=== PATIENT | male | born 1960 | race Caucasian/White ===

== ENCOUNTER 2017-05-07 20:47 | Emergency (ER) | payer MEDICAID ==
[~2017-05-07] VITALS: Ht 177.8 cm; Wt 109.4 kg
[~2017-05-07 20:47] MED LIST: CYCL-1 PO; GABA600T2 PO; IBUP-1984 PO; MEDICAL THC INH; MULT-1085 PO; NAPR-996 PO
[2017-05-07] MEDS ORDERED: fentaNYL/PF 50MCG/1 ML 2ML syringe IV ONE ×2 (21:25→22:00)
[2017-05-07] MEDS ORDERED: propofol 1000mg/100ml bottle 100 ML IV PRN (21:59)
[2017-05-07] MEDS ORDERED: propofol 10mg/ml 20ml vial IV ONE ×2 (22:00→22:10)
[2017-05-07] MEDS ORDERED: HYDR-3965 PO (22:30)
[2017-05-07] MEDS ORDERED: HYDROcodone/acetaminophen 5mg/325mg tablet PO ONE (22:30)
[2017-05-07 23:10] VITALS: BP 141/83
== END 2017-05-07 23:34 | disposition home or self-care (01) ==
LOC: ER 20:48
DX: S43.004A Unspecified dislocation of right shoulder joint, initial encounter (principal); Z79.899 Other long term (current) drug therapy; W01.0XXA Fall on same level from slipping, tripping and stumbling without subsequent striking against object, initial encounter; Y93.89 Activity, other specified; Y92.89 Other specified places as the place of occurrence of the external cause; Y99.8 Other external cause status
CPT/HCPCS: 23650; 73020; 73030; 96374; 96376; 99285; J2704; J3010; J7030; 96375; A4620

== ENCOUNTER → 2017-11-10 | Day surgery (SDC) | payer MEDICAID ==
[2017-11-02 15:16] LABS: BASOPHILS % (AUTO) 0.3 % (0-1); EOSINOPHILS # (AUTO) 0.3 X10'3 (0-0.9); EOSINOPHILS % (AUTO) 2.2 % (0-6); LYMPHOCYTES # (AUTO) 2.8 X10'3 (1.1-4.8); MEAN CORPUSCULAR HEMOGLOBIN 28.2 PG (27.0-31.0); MEAN CORPUSCULAR HGB CONC 33.1 % (33.0-36.5); MEAN CORPUSCULAR VOLUME 85.1 FL (78-98); MEAN PLATELET VOLUME 10.3 FL (7.4-10.4); MONOCYTES # (AUTO) 0.7 X10'3 (0-0.9); MONOCYTES % (AUTO) 5.3 % (2-12); NEUTROPHILS # (AUTO) 9.6 X10'3 (1.8-7.7); NEUTROPHILS % (AUTO) 71.2 % (42-75); PRE OP HEMATOCRIT 44.5 % (42.0-52.0); PRE OP HEMOGLOBIN 14.8 g/dL (14.0-17.9); PRE OP PLATELET COUNT 181 X10'3 (140-440); RED BLOOD COUNT 5.23 X10'6 (4.70-6.10); RED CELL DISTRIBUTION WIDTH 13.4 % (11.5-14.5)
[2017-11-02 15:33] LABS: ALBUMIN 4.1 G/DL (3.4-5.0); ALBUMIN/GLOBULIN RATIO 1.2 (1.1-1.5); ALKALINE PHOSPHATASE 118 IU/L (46-116); BLOOD UREA NITROGEN 18 MG/DL (7-18); BUN/CREATININE RATIO 18.9 (5.4-32.0); CALCIUM 9.1 MG/DL (8.5-10.1); CHLORIDE 103 MMOL/L (99-107); CREATININE 0.95 MG/DL (0.60-1.10); PRE OP ALT 43 U/L (30-65); PRE OP ANION GAP 9 (8-16); PRE OP AST 20 U/L (10-37); PRE OP BILIRUB, TOTAL 0.3 MG/DL (0.0-1.0); PRE OP GLUCOSE 128 MG/DL (70-104); PRE OP POTASSIUM 3.5 MMOL/L (3.4-5.1); PRE OP SODIUM 139 MMOL/L (135-145); TOTAL CARBON DIOXIDE 26.6 MMOL/L (24-32); TOTAL PROTEIN 7.5 G/DL (6.4-8.2); eGFR 81 ML/MIN
[~2017-11-10] VITALS: Ht 175.3 cm; Wt 104.4 kg
[2017-11-10] VITALS (8 sets, daily range): BP systolic 112–144; BP diastolic 64–92
[~2017-11-10] MED LIST changes: +ASPI-529 PO; +Cefazolin 2GM/50ML dext iso,osmotic IVPB IV ONE; -GABA600T2 PO; +HYDR-569 PO; +HYDROcodone/acetaminophen 10/325mg tab PO PRN; +LIDOcaine 1% (10mg/ml) 2ml vial ONE; +LIDOcaine 2% (20mg/ml) 5ml vial ONE; +LORA10TA7 PO; -NAPR-996 PO; +ROPIVAcaine 0.5% (5mg/ml) 30ml vial ONE; +cloNIDine hcl/PF 100mcg/ml inj ONE; +dexamethasone sod phosphate 4mg/ml inj. ONE; +enalaprilat dihydrate 2.5mg/2ml vial IV PRN; +famotidine 20mg tablet PO ONE; +fentaNYL/PF 50MCG/1 ML 2ML syringe ONE; +hydrALAZINE 20mg/ml inj. IV PRN; +meperidine/PF 25mg/ml syringe IV PRN; +midazolam 2 mg/2 ml injection ONE; +morphine 10mg/ml inj. ONE; +morphine 4 MG/ML inj SYRINge IV PRN; +ondansetron/PF 4mg/2ml inj IV PRN; +ondansetron/PF 4mg/2ml inj ONE; +propofol inj 20 ML IV ONE; +ringers solution, lacted 1,000 ML IV SCH; +sevoflurane 250ml liquid IH ONE
== END | disposition home or self-care (01) ==
LOC: PAS 05:25 → UNDOADMOB 10:05 → ORTHO 4S 10:05
PROVIDERS: ATTEND Orthopaedic Surgery
DX: M75.121 Complete rotator cuff tear or rupture of right shoulder, not specified as traumatic (principal); M94.211 Chondromalacia, right shoulder; M75.51 Bursitis of right shoulder; G89.18 Other acute postprocedural pain; M19.011 Primary osteoarthritis, right shoulder; I25.10 Atherosclerotic heart disease of native coronary artery without angina pectoris; F12.90 Cannabis use, unspecified, uncomplicated; Z72.89 Other problems related to lifestyle; Z86.14 Personal history of Methicillin resistant Staphylococcus aureus infection; Z87.39 Personal history of other diseases of the musculoskeletal system and connective tissue; Z79.82 Long term (current) use of aspirin; Z79.891 Long term (current) use of opiate analgesic; Z79.1 Long term (current) use of non-steroidal anti-inflammatories (NSAID); Z79.899 Other long term (current) drug therapy; Z98.890 Other specified postprocedural states; Z80.9 Family history of malignant neoplasm, unspecified
CPT/HCPCS: 29822; 29827; 36415; 64450; 80053; 85025; A6449; C1713; C1776; J0690; J0735; J1100; J2001; J2250; J2270; J2405; J2704; J2795; J3010; J3490; J7030; J7120; A7000

== ENCOUNTER 2019-04-09 06:28 | Emergency (ER) | payer MEDICARE, MEDICAID ==
[~2019-04-09] VITALS: Ht 177.8 cm; Wt 111.0 kg
[~2019-04-09 06:28] MED LIST changes: -Cefazolin 2GM/50ML dext iso,osmotic IVPB IV ONE; +HYDR-4383 PO; -HYDR-569 PO; -HYDROcodone/acetaminophen 10/325mg tab PO PRN; -LIDOcaine 1% (10mg/ml) 2ml vial ONE; -LIDOcaine 2% (20mg/ml) 5ml vial ONE; -ROPIVAcaine 0.5% (5mg/ml) 30ml vial ONE; -cloNIDine hcl/PF 100mcg/ml inj ONE; -dexamethasone sod phosphate 4mg/ml inj. ONE; -enalaprilat dihydrate 2.5mg/2ml vial IV PRN; -famotidine 20mg tablet PO ONE; -fentaNYL/PF 50MCG/1 ML 2ML syringe ONE; -hydrALAZINE 20mg/ml inj. IV PRN; -meperidine/PF 25mg/ml syringe IV PRN; -midazolam 2 mg/2 ml injection ONE; -morphine 10mg/ml inj. ONE; -morphine 4 MG/ML inj SYRINge IV PRN; -ondansetron/PF 4mg/2ml inj IV PRN; -ondansetron/PF 4mg/2ml inj ONE; -propofol inj 20 ML IV ONE; -ringers solution, lacted 1,000 ML IV SCH; -sevoflurane 250ml liquid IH ONE
[2019-04-09 06:35] VITALS: BP 176/93
[2019-04-09] MEDS ORDERED: LIDOcaine 1% W/epiNEPHrine 1:200,000 10ml vial IJ ONE (07:10)
[2019-04-09] MEDS ORDERED: CLIN-90 PO (07:34)
== END 2019-04-09 07:57 | disposition home or self-care (01) ==
LOC: ER 06:29
DX: R22.1 Localized swelling, mass and lump, neck (principal); F12.90 Cannabis use, unspecified, uncomplicated; Z79.82 Long term (current) use of aspirin; Z79.899 Other long term (current) drug therapy; Z79.2 Long term (current) use of antibiotics; Z79.1 Long term (current) use of non-steroidal anti-inflammatories (NSAID)
CPT/HCPCS: 10060; 99283

== ENCOUNTER 2019-10-24 07:03 | Inpatient (IN) | payer MEDICARE, MEDICAID ==
[2019-10-19 14:35] LABS: BASOPHILS # (AUTO) 0.1 X10'3 (0-0.2); BASOPHILS % (AUTO) 0.6 % (0-1); EOSINOPHILS # (AUTO) 0.1 X10'3 (0-0.9); EOSINOPHILS % (AUTO) 0.9 % (0-6); LYMPHOCYTES # (AUTO) 2.5 X10'3 (1.1-4.8); LYMPHOCYTES % (AUTO) 19.3 % (21-51); MEAN CORPUSCULAR HEMOGLOBIN 28.1 PG (27.0-31.0); MEAN CORPUSCULAR HGB CONC 33.1 g/dL (33.0-36.5); MEAN CORPUSCULAR VOLUME 84.8 FL (78-98); MEAN PLATELET VOLUME 9.5 FL (7.4-10.4); NEUTROPHILS # (AUTO) 9.1 X10'3 (1.8-7.7); NEUTROPHILS % (AUTO) 71.2 % (42-75); PRE OP HEMATOCRIT 45.2 % (42.0-52.0); PRE OP PLATELET COUNT 180 X10'3 (140-440); RED BLOOD COUNT 5.33 X10'6 (4.70-6.10); RED CELL DISTRIBUTION WIDTH 15.3 % (11.5-14.5)
[2019-10-19 14:44] LABS: PRE OP PROTIME 10.1 SECONDS (9.0-12.0)
[2019-10-19 14:45] LABS: ALBUMIN 3.9 G/DL (3.4-5.0); ALBUMIN/GLOBULIN RATIO 1.1 (1.1-1.5); ALKALINE PHOSPHATASE 100 IU/L (46-116); BLOOD UREA NITROGEN 19 MG/DL (7-18); BUN/CREATININE RATIO 21.6 (5.4-32.0); CALCIUM 8.7 MG/DL (8.5-10.1); CHLORIDE 107 MMOL/L (99-107); CREATININE 0.88 MG/DL (0.60-1.10); PRE OP ANION GAP 8 (8-16); PRE OP AST 44 U/L (10-37); PRE OP BILIRUB, TOTAL 0.4 MG/DL (0.0-1.0); PRE OP GLUCOSE 88 MG/DL (70-104); PRE OP POTASSIUM 4.1 MMOL/L (3.4-5.1); PRE OP SODIUM 140 MMOL/L (135-145); TOTAL CARBON DIOXIDE 24.9 MMOL/L (24-32); TOTAL PROTEIN 7.4 G/DL (6.4-8.2); eGFR 88 ML/MIN
[2019-10-19 14:49] LABS: PRE OP ALT 84 U/L (30-65)
[~2019-10-24] VITALS: Ht 175.3 cm; Wt 109.0 kg
[2019-10-24] VITALS (19 sets, daily range): BP systolic 121–150; BP diastolic 25–102
[~2019-10-24 07:03] MED LIST changes: +BACL10TA2 PO; +CELE-85 PO; -CYCL-1 PO; -HYDR-4383 PO; -IBUP-1984 PO; -MEDICAL THC INH; +OMEP40CA13 PO; +ceFAZolin 2gm in dextrose, iso 50 ML IV ONE; +famotidine 20mg tablet PO ONE; +ringers solution, lacted 1,000 ML IV SCH; +tranexamic acid inj. 1,080 MG in normal saline 100ml IV soln 100 ML IV ONE; +vancomycin 1,500 MG in NS 300ml IV soln IV ONE
[2019-10-24] MEDS ORDERED: tranexamic acid inj. 1,080 MG in normal saline 100ml IV soln 100 ML IV ONE (08:00)
[2019-10-24] MEDS ORDERED: ketorolac trometh. 30mg/ml inj. ONE (10:39)
[2019-10-24] MEDS ORDERED: ROPIVAcaine 0.5% (5mg/ml) 30ml vial ONE ×2 (10:39→11:52)
[2019-10-24] MEDS ORDERED: fentaNYL/PF 50MCG/1 ML 2ML syringe ONE (11:49)
[2019-10-24] MEDS ORDERED: MIDAZolam 5mg/5ml vial ONE (11:50)
[2019-10-24] MEDS ORDERED: propofol inj 20 ML IV ONE (11:50)
[2019-10-24] MEDS ORDERED: sevoflurane 250ml liquid IH ONE (11:53)
[2019-10-24] MEDS ORDERED: ondansetron/PF 4mg/2ml inj IV PRN ×2 (13:30→14:45)
[2019-10-24] MEDS ORDERED: morphine 2 MG/ML inj. syringe IV PRN (13:30)
[2019-10-24] MEDS ORDERED: ROPIVAcaine 0.2% (10 MG/5 ML) BOLUS INJECTION INTERSCALE PRN (13:30)
[2019-10-24] MEDS ORDERED: ROPIVAcaine 0.2%/PF PUMP/bolus 550 ML INTERSCALE SCH (13:30)
[2019-10-24] MEDS ORDERED: ringers solution, lacted 1,000 ML IV SCH (13:30)
[2019-10-24] MEDS ORDERED: meperidine/PF 25mg/ml syringe IV PRN ×3 (13:30)
[2019-10-24] MEDS ORDERED: morphine 4 MG/ML inj SYRINge IV PRN (13:30)
[2019-10-24] MEDS ORDERED: proCHLORperazine 10 MG/2 ml inj IV PRN (13:30)
--- NOTE | 2019-10-24 14:27 | NUR ---
PT ARRIVED IN PACU VIA GURNEY FROM OR WITH O2 ON. DR Baig IN ATTENDANCE. REPORT RECEIVED. PT SNORING LOUDLY ON ARRIVAL (SHOWING SIGNS OF AIRWAY OBSTRUCTION) AND DR Baig HELD AIRWAY OPEN WITH JAW THRUST, OFF AND ON FOR 5 MINS. O2 SAT GOOD. PT ASLEEP STILL.
[2019-10-24] MEDS ORDERED: bisacodyl 10mg suppository rectal RC PRN (14:45)
[2019-10-24] MEDS ORDERED: acetaminophen 325mg tablet PO PRN (14:45)
[2019-10-24] MEDS ORDERED: HYDROmorphone inj. 0.5 MG/0.5 ML DISP.SYRIN IV PRN (14:45)
[2019-10-24] MEDS ORDERED: HYDROmorphone 1 mg/ml syringe IV PRN (14:45)
[2019-10-24] MEDS ORDERED: magnesium hydroxide 30ml (MOM) UD suspension PO PRN (14:45)
[2019-10-24] MEDS ORDERED: diphenhydrAMINE 25mg capsule PO PRN ×2 (14:45)
[2019-10-24] MEDS ORDERED: oxyCODONE IR 5mg (immed. release) tablet PO PRN ×2 (14:45)
[2019-10-24] MEDS ORDERED: HYDROcodone/acetaminophen 10/325mg tab PO PRN (14:45)
--- NOTE | 2019-10-24 14:57 | NUR ---
PT AROUSES EASILY, THEN DRIFTS BACK TO SLEEP. BREATING ADEQUATE, THOUGH STILL SNORES OCCASIONALLY. ON-Q ATTACHES TO CATH L SHOULDER AT RATE OF 2ML/HR ORDERED. NO C/O PAIN AT THIS TIME. LUE RESTING IN SLING ON PILLOW.
--- NOTE | 2019-10-24 15:27 | NUR ---
SLEEPING COMFORTABLY. VS STABLE
--- NOTE | 2019-10-24 15:47 | NUR ---
TO ROOM. PT MOVED HIMSELF TO HIS BED WITH LITTLE ASSISTANCE. PT COMFORTABLE. NURSE IN ROOM TO ACCEPT PT
[2019-10-24] MEDS: ceFAZolin 1GM/D5W- ADD-VANTAGE 50 ML IV SCH ×2 (17:07→23:29)
[2019-10-24] MEDS ORDERED: tranexamic acid inj. 1,090 MG in normal saline 100ml IV soln 100 ML IV ONE (17:45)
--- NOTE | 2019-10-24 18:15 | NUR ---
Patient in room [facility]TH[facility] 4008. I have received report from CASEY Cooper and had the opportunity to ask questions and assume patient care.
[2019-10-24] MEDS ORDERED: vancomycin/NS 1 GM ADD-VANTAGE 250 ML IV SCH (20:00)
[2019-10-24] MEDS: potassium cl 20mEq in 1/2 NS 1,000 ML IV SCH ×2 (20:11→22:43)
[2019-10-24] MEDS: acetaminophen 325mg tablet PO SCH (20:12)
[2019-10-24] MEDS: loratadine 10mg tablet PO SCH (20:13)
[2019-10-24] MEDS ORDERED: sennosides 8.6mg tablet PO SCH (21:00)
[2019-10-25] MEDS: acetaminophen 325mg tablet PO SCH ×2 (01:53→08:43)
[2019-10-25 02:00] VITALS: BP 144/88
[2019-10-25] MEDS: potassium cl 20mEq in 1/2 NS 1,000 ML IV SCH (05:46)
[2019-10-25 06:00] VITALS: BP 152/96
[2019-10-25 06:15] LABS: BASOPHILS % (AUTO) 0.2 % (0-1); EOSINOPHILS % (AUTO) 0.2 % (0-6); MEAN CORPUSCULAR HGB CONC 33.6 g/dL (33.0-36.5); MONOCYTES # (AUTO) 1.4 X10'3 (0-0.9)
[2019-10-25 06:17] LABS: HEMATOCRIT 43.4 % (42.0-52.0); HEMOGLOBIN 14.6 g/dl (14.0-17.9); LYMPHOCYTES # (AUTO) 2.1 X10'3 (1.1-4.8); LYMPHOCYTES % (AUTO) 13.3 % (21-51); MEAN CORPUSCULAR HEMOGLOBIN 28.7 PG (27.0-31.0); MEAN CORPUSCULAR VOLUME 85.4 FL (78-98); MEAN PLATELET VOLUME 9.6 FL (7.4-10.4); MONOCYTES % (AUTO) 8.6 % (2-12); NEUTROPHILS # (AUTO) 12.4 X10'3 (1.8-7.7); NEUTROPHILS % (AUTO) 77.7 % (42-75); PLATELET COUNT 175 X10'3 (140-440); RED BLOOD COUNT 5.09 X10'6 (4.70-6.10); WHITE BLOOD COUNT 15.9 X10'3 (4.5-11.0)
--- NOTE | 2019-10-25 06:24 | NUR ---
Problems reprioritized. Patient report given, questions answered & plan of care reviewed with CASEY Shafer.
[2019-10-25 06:38] LABS: ANION GAP 13 (8-16); CHLORIDE 105 MMOL/L (99-107); SODIUM 140 MMOL/L (135-145); TOTAL CARBON DIOXIDE 22.5 MMOL/L (24-32)
[2019-10-25] MEDS ORDERED: pantoprazole 40mg Tablet.DR PO SCH (08:00)
[2019-10-25] MEDS ORDERED: baclofen 10mg tablet PO SCH (08:00)
[2019-10-25] MEDS ORDERED: aspirin 325mg tablet PO SCH (08:30)
[2019-10-25] MEDS: loratadine 10mg tablet PO SCH (08:43)
[2019-10-25] MEDS ORDERED: ONQPUMP ADDCANAL (08:58)
[2019-10-25 10:00] VITALS: BP 157/81
--- NOTE | 2019-10-25 10:11 | NUR ---
Joint Replacement Consult: Pt seen by MADDIE for written/verbal high protein ed w/ RD contact information provided s/p [email or web address]. Pt declines additional proteins at this time. Addendum: 10/25/19 at [address] Amended: Links added. Addendum: 10/25/19 at [address] Joint Replacement Consult: Pt seen by MADDIE for written/verbal high protein ed w/ RD contact information provided s/p [email or web address] Pt declines additional proteins at this time.
--- NOTE | 2019-10-25 11:45 | NUR ---
DC INSTRUCTIONS GIVEN, NO QUESTIONS. IV REMOVED BY CASEY CASTRO. ASSISTED PT IN DRESSING. WHEELED DOWN TO GIRLFRIEND IN PRIVATE VEHICLE IN STABLE CONDITION
--- NOTE | 2019-10-26 12:07 | NUR ---
Case management DC follow up: LM/VM re s/p LTSA post DC follow up, questions, concerns
[2019-10-26] MEDS ORDERED: acetaminophen 325mg tablet PO PRN (14:45)
== END 2019-10-25 11:45 | disposition home health service (06) | DRG 483 ==
LOC: UNDOADMIN 07:03 → PAS IN 07:03 → EDSTATUS 10:00 → PAS IN 14:43 → ORTHO 4S 15:55
PROVIDERS: ADMIT Orthopaedic Surgery; ATTEND Orthopaedic Surgery
PROC: 0LS40ZZ Reposition Left Upper Arm Tendon, Open Approach (ICD-10-PCS; 2019-10-24)
PROC: 3E0T3BZ Introduction of Anesthetic Agent into Peripheral Nerves and Plexi, Percutaneous Approach (ICD-10-PCS; 2019-10-24)
PROC: 0RRK00Z Replacement of Left Shoulder Joint with Reverse Ball and Socket Synthetic Substitute, Open Approach (ICD-10-PCS; principal; 2019-10-24 11:53)
DX: M19.012 Primary osteoarthritis, left shoulder (principal); M75.122 Complete rotator cuff tear or rupture of left shoulder, not specified as traumatic; K21.9 Gastro-esophageal reflux disease without esophagitis
CPT/HCPCS: 36415; 80051; 80053; 82948; 85025; 85610; 85730; 87081; 93005; 97110; 97161; 97530; A4565; A4618; A7000; C1776; G0378; J0690; J1885; J2250; J2704; J2795; J3010; J3370; J3480; J7040; J7120

== ENCOUNTER 2023-02-16 12:16 | Emergency (ER) | payer MEDICARE, MEDICAID ==
[~2023-02-16] VITALS: Ht 177.8 cm; Wt 106.8 kg
[~2023-02-16 12:16] MED LIST changes: +CELE-127 PO; -CELE-85 PO; -OMEP40CA13 PO; +OMEP40CA21 PO; +ONQPUMP ADDCANAL; -ceFAZolin 2gm in dextrose, iso 50 ML IV ONE; -famotidine 20mg tablet PO ONE; -ringers solution, lacted 1,000 ML IV SCH; -tranexamic acid inj. 1,080 MG in normal saline 100ml IV soln 100 ML IV ONE; -vancomycin 1,500 MG in NS 300ml IV soln IV ONE
[2023-02-16] MEDS ORDERED: diazepam inj 5 MG/ML inj. IM ONE (12:40)
[2023-02-16] MEDS ORDERED: ketorolac trometh inj. 60 MG/2 ML VIAL IM ONE (12:40)
[2023-02-16] MEDS ORDERED: ondansetron/PF 4mg/2ml inj IV ONE (12:50)
[2023-02-16] MEDS ORDERED: morphine 4 MG/ML inj SYRINge IV ONE (12:50)
[2023-02-16] MEDS ORDERED: diazepam inj 5 MG/ML inj. IV ONE (13:50)
[2023-02-16] MEDS ORDERED: HYDROmorphone 1 mg/ml syringe IV ONE (14:35)
[2023-02-16] MEDS ORDERED: HYDROcodone/acetaminophen 5mg/325mg tablet PO ONE (15:30)
[2023-02-16] MEDS ORDERED: BUPIVAcaine/PF 2.5 mg/ml (0.25%) 30ml vial IJ ONE (17:00)
[2023-02-16] MEDS ORDERED: propofol 10mg/ml 20ml vial IV ONE ×2 (17:05→18:40)
[2023-02-16] MEDS ORDERED: normal saline 1000ML IV soln IVB ONE (17:05)
[2023-02-16 19:04] LABS: BASOPHILS # (AUTO) 0.2 X10'3 (0-0.2); EOSINOPHILS # (AUTO) 0.1 X10'3 (0-0.9); EOSINOPHILS % (AUTO) 0.4 % (0-6); HEMOGLOBIN 13.7 g/dl (14.0-17.9); LYMPHOCYTES % (AUTO) 5.2 % (21-51); MEAN CORPUSCULAR HEMOGLOBIN 28.7 PG (27.0-31.0); MEAN CORPUSCULAR HGB CONC 33.4 g/dL (33.0-36.5); MEAN PLATELET VOLUME 9.8 FL (7.4-10.4); MONOCYTES # (AUTO) 0.9 X10'3 (0-0.9); MONOCYTES % (AUTO) 4.8 % (2-12); NEUTROPHILS # (AUTO) 16.8 X10'3 (1.8-7.7); NEUTROPHILS % (AUTO) 88.6 % (42-75); PLATELET COUNT 172 X10'3 (140-440); RED BLOOD COUNT 4.77 X10'6 (4.70-6.10); RED CELL DISTRIBUTION WIDTH 15.1 % (11.5-14.5)
[2023-02-16 19:08] LABS: ALANINE AMINOTRANSFERASE 38 U/L (12-78); ALBUMIN/GLOBULIN RATIO 1.2 (1.1-1.5); ALKALINE PHOSPHATASE 109 IU/L (46-116); ANION GAP 9 (8-16); ASPARTATE AMINO TRANSFERASE 22 U/L (10-37); BILIRUBIN,TOTAL 0.2 MG/DL (0.1-1.0); BLOOD UREA NITROGEN 21 MG/DL (7-18); BUN/CREATININE RATIO 24.4 (10.0-20.0); CALCIUM 8.6 MG/DL (8.5-10.1); CHLORIDE 104 MMOL/L (99-107); CREATININE 0.86 MG/DL (0.60-1.10); GLUCOSE 169 MG/DL (70-104); POTASSIUM 3.6 MMOL/L (3.5-5.1); SODIUM 138 MMOL/L (135-145); TOTAL CARBON DIOXIDE 25.1 MMOL/L (24-32); TOTAL PROTEIN 7.3 G/DL (6.4-8.2); eCRCL 90 ML/MIN; eGFR 90 ML/MIN
[2023-02-16 19:14] LABS: PROTHROMBIN TIME 10.4 SECONDS (9.0-12.0)
[2023-02-16 19:15] LABS: APTT 20 SECONDS (22-32)
[2023-02-16] MEDS ORDERED: HYDROcodone/acetaminophen 10/325mg tab PO ONE (20:05)
[2023-02-16] MEDS ORDERED: naproxen 500mg tablet PO ONE (20:05)
[2023-02-16] MEDS ORDERED: HYDR-3973 PO (20:09)
[2023-02-16 20:26] VITALS: BP 139/85; PULSE 98; RESP 16; TEMP 98.4; O2SAT 96
[2023-02-16 22:47] LABS: PLATELET ESTIMATE NORMAL; TOTAL CELLS COUNTED 100
[2023-02-17] MEDS ORDERED: HYDR-3972 PO (09:33)
== END 2023-02-16 20:31 | disposition home or self-care (01) ==
LOC: ER 12:16
DX: S43.004A Unspecified dislocation of right shoulder joint, initial encounter (principal); S42.291A Other displaced fracture of upper end of right humerus, initial encounter for closed fracture; I10 Essential (primary) hypertension; F12.90 Cannabis use, unspecified, uncomplicated; Z79.1 Long term (current) use of non-steroidal anti-inflammatories (NSAID); Z79.2 Long term (current) use of antibiotics; W19.XXXA Unspecified fall, initial encounter; Y93.89 Activity, other specified; Y92.89 Other specified places as the place of occurrence of the external cause; Y99.8 Other external cause status
CPT/HCPCS: 23675; 36415; 73030; 80053; 85007; 85025; 85610; 85730; 93005; 96361; 96372; 96374; 96375; 99152; 99153; 99285; J1170; J1885; J2270; J2405; J3360; J7030; A4565; A4615

== ENCOUNTER 2023-11-06 13:42 | Emergency (ER) | payer MEDICARE, MEDICAID ==
[~2023-11-06] VITALS: Ht 177.8 cm; Wt 105.5 kg
[2023-11-06] MEDS: normal saline 1000ml 1,000 ML IV ONE (14:28)
[2023-11-06] MEDS: diltiazem 5mg/ml 5ml inj. IV ONE ×2 (14:30→15:17)
[2023-11-06 14:54] LABS: ALANINE AMINOTRANSFERASE 47 U/L (12-78); ALBUMIN 4.1 G/DL (3.4-5.0); ALBUMIN/GLOBULIN RATIO 1.1 (1.1-1.5); ALKALINE PHOSPHATASE 111 IU/L (46-116); ANION GAP 14 (8-16); ASPARTATE AMINO TRANSFERASE 22 U/L (10-37); BILIRUBIN,TOTAL 0.5 MG/DL (0.1-1.0); BLOOD UREA NITROGEN 22 MG/DL (7-18); CALCIUM 9.4 MG/DL (8.5-10.1); CHLORIDE 103 MMOL/L (99-107); CREATININE 1.22 MG/DL (0.60-1.10); GLUCOSE 131 MG/DL (70-104); POTASSIUM 4.1 MMOL/L (3.5-5.1); SODIUM 139 MMOL/L (135-145); TOTAL CARBON DIOXIDE 21.7 MMOL/L (24-32); TOTAL PROTEIN 7.7 G/DL (6.4-8.2); eCRCL 62 ML/MIN; eGFR 60 ML/MIN
[2023-11-06 15:02] LABS: PRO BRAIN NATRIURETIC PEPTIDE 4154 PG/ML (0-125)
[2023-11-06 15:04] LABS: BASOPHILS % (AUTO) 0.3 % (0-1); EOSINOPHILS # (AUTO) 0.1 X10'3 (0-0.9); EOSINOPHILS % (AUTO) 0.6 % (0-6); LYMPHOCYTES # (AUTO) 2.6 X10'3 (1.1-4.8); LYMPHOCYTES % (AUTO) 23.1 % (21-51); MEAN CORPUSCULAR HEMOGLOBIN 28.4 PG (27.0-31.0); MEAN CORPUSCULAR HGB CONC 33.4 g/dL (33.0-36.5); MEAN PLATELET VOLUME 8.8 FL (7.4-10.4); MONOCYTES % (AUTO) 8.4 % (2-12); NEUTROPHILS # (AUTO) 7.7 X10'3 (1.8-7.7); NEUTROPHILS % (AUTO) 67.6 % (42-75); PLATELET COUNT 245 X10'3 (140-440); RED BLOOD COUNT 4.94 X10'6 (4.70-6.10); RED CELL DISTRIBUTION WIDTH 14.3 % (11.5-14.5); WHITE BLOOD COUNT 11.4 X10'3 (4.5-11.0)
[2023-11-06] MEDS ORDERED: AMLO10TA13 PO (15:22)
[2023-11-06] MEDS ORDERED: DULO30CA52 PO (15:22)
[2023-11-06] MEDS ORDERED: METO-395 PO (15:22)
[2023-11-06] MEDS ORDERED: LISI20TA28 PO (15:22)
[2023-11-06 16:38] VITALS: BP 131/77; PULSE 68; RESP 12; TEMP 98.8; O2SAT 96
== END 2023-11-06 16:40 | disposition home or self-care (01) ==
LOC: ER 13:43
DX: R00.0 Tachycardia, unspecified (principal); I10 Essential (primary) hypertension; F12.90 Cannabis use, unspecified, uncomplicated; Z20.822 Contact with and (suspected) exposure to COVID-19; Z79.899 Other long term (current) drug therapy; Z79.82 Long term (current) use of aspirin
CPT/HCPCS: 36415; 71045; 80053; 83880; 84484; 85025; 87811; 93005; 96361; 96374; 96376; 99285; A4615; J3490; J7030

== ENCOUNTER 2023-11-24 07:51 | Emergency (ER) | payer MEDICARE, MEDICAID ==
[~2023-11-24] VITALS: Ht 177.8 cm; Wt 106.8 kg
[~2023-11-24 07:51] MED LIST changes: +AMLO10TA13 PO; -CELE-127 PO; +DULO30CA52 PO; +LISI20TA28 PO; -LORA10TA7 PO; +METO-395 PO; -ONQPUMP ADDCANAL
[2023-11-24] MEDS: diltiazem 5mg/ml 5ml inj. IV ONE ×2 (08:10→09:24)
[2023-11-24] MEDS: normal saline 1000ML IV soln IVB ONE (08:16)
[2023-11-24] MEDS: diltiazem 30mg tablet PO ONE (08:16)
[2023-11-24 08:29] LABS: BASOPHILS # (AUTO) 0.1 X10'3 (0-0.2); BASOPHILS % (AUTO) 0.8 % (0-1); EOSINOPHILS # (AUTO) 0.1 X10'3 (0-0.9); HEMATOCRIT 48.2 % (42.0-52.0); HEMOGLOBIN 16.1 g/dl (14.0-17.9); LYMPHOCYTES # (AUTO) 2.1 X10'3 (1.1-4.8); LYMPHOCYTES % (AUTO) 14.8 % (21-51); MEAN CORPUSCULAR HEMOGLOBIN 28.4 PG (27.0-31.0); MEAN CORPUSCULAR HGB CONC 33.4 g/dL (33.0-36.5); MEAN CORPUSCULAR VOLUME 85.1 FL (78-98); MEAN PLATELET VOLUME 9.7 FL (7.4-10.4); MONOCYTES % (AUTO) 7.2 % (2-12); NEUTROPHILS # (AUTO) 10.6 X10'3 (1.8-7.7); NEUTROPHILS % (AUTO) 76.2 % (42-75); PLATELET COUNT 262 X10'3 (140-440); RED BLOOD COUNT 5.66 X10'6 (4.70-6.10); RED CELL DISTRIBUTION WIDTH 14.9 % (11.5-14.5)
[2023-11-24 08:49] LABS: ALBUMIN 4.3 G/DL (3.4-5.0); ANION GAP 13 (8-16); BLOOD UREA NITROGEN 17 MG/DL (7-18); BUN/CREATININE RATIO 16.3 (10.0-20.0); CALCIUM 9.5 MG/DL (8.5-10.1); CHLORIDE 106 MMOL/L (99-107); CREATININE 1.04 MG/DL (0.60-1.10); GLUCOSE 137 MG/DL (70-104); POTASSIUM 4.3 MMOL/L (3.5-5.1); PRO BRAIN NATRIURETIC PEPTIDE 1677 PG/ML (0-125); SODIUM 142 MMOL/L (135-145); eCRCL 73 ML/MIN; eGFR 72 ML/MIN
[2023-11-24 09:16] LABS: THYROID STIMULATING HORMONE 1.75 ulU/ml (0.34-4.50)
[2023-11-24] MEDS: magnesium sulf-water 2g/50mL 50 ML IV ONE (09:24)
[2023-11-24] MEDS ORDERED: LOP25T PO (10:00)
[2023-11-24 14:05] VITALS: BP 126/94; PULSE 74; RESP 16; TEMP 98.1; O2SAT 95
== END 2023-11-24 12:00 | disposition home or self-care (01) ==
LOC: ER 07:51
DX: I47.19 Other supraventricular tachycardia (principal); I10 Essential (primary) hypertension; F12.90 Cannabis use, unspecified, uncomplicated; Z79.899 Other long term (current) drug therapy; Z79.82 Long term (current) use of aspirin; Z98.890 Other specified postprocedural states
CPT/HCPCS: 36415; 80048; 83880; 84145; 84443; 84484; 85025; 93005; 96361; 96365; 96366; 96375; 96376; 99285; J3490; J7030

== ENCOUNTER 2023-12-21 06:26 | Emergency (ER) | payer MEDICARE, MEDICAID ==
[~2023-12-21] VITALS: Ht 177.8 cm; Wt 106.7 kg
[~2023-12-21 06:26] MED LIST changes: +LOP25T PO
[2023-12-21] MEDS: diltiazem 5mg/ml 5ml inj. IV ONE ×4 (06:57→07:35)
[2023-12-21 07:51] LABS: BASOPHILS # (AUTO) 0.1 X10'3 (0-0.2); BASOPHILS % (AUTO) 0.5 % (0-1); EOSINOPHILS # (AUTO) 0.3 X10'3 (0-0.9); EOSINOPHILS % (AUTO) 1.9 % (0-6); HEMATOCRIT 48.4 % (42.0-52.0); HEMOGLOBIN 16.3 g/dl (14.0-17.9); LYMPHOCYTES % (AUTO) 22.7 % (21-51); MEAN CORPUSCULAR HEMOGLOBIN 28.7 PG (27.0-31.0); MEAN CORPUSCULAR HGB CONC 33.7 g/dL (33.0-36.5); MEAN CORPUSCULAR VOLUME 85.3 FL (78-98); MEAN PLATELET VOLUME 10.2 FL (7.4-10.4); MONOCYTES % (AUTO) 7.6 % (2-12); NEUTROPHILS # (AUTO) 8.9 X10'3 (1.8-7.7); NEUTROPHILS % (AUTO) 67.3 % (42-75); PLATELET COUNT 247 X10'3 (140-440); RED BLOOD COUNT 5.68 X10'6 (4.70-6.10); WHITE BLOOD COUNT 13.3 X10'3 (4.5-11.0)
[2023-12-21 07:54] LABS: ALANINE AMINOTRANSFERASE 47 U/L (12-78); ALBUMIN 4.1 G/DL (3.4-5.0); ALBUMIN/GLOBULIN RATIO 1.1 (1.1-1.5); ALKALINE PHOSPHATASE 126 IU/L (46-116); ANION GAP 10 (8-16); ASPARTATE AMINO TRANSFERASE 22 U/L (10-37); BILIRUBIN,TOTAL 0.5 MG/DL (0.1-1.0); BLOOD UREA NITROGEN 22 MG/DL (7-18); BUN/CREATININE RATIO 21.4 (10.0-20.0); CHLORIDE 104 MMOL/L (99-107); CREATININE 1.03 MG/DL (0.60-1.10); GLUCOSE 136 MG/DL (70-104); POTASSIUM 3.8 MMOL/L (3.5-5.1); SODIUM 140 MMOL/L (135-145); eCRCL 74 ML/MIN; eGFR 72 ML/MIN
[2023-12-21] MEDS: diltiazem-NS 100mg/100ml 100 ML IV SCH (08:05)
[2023-12-21 08:12] LABS: MAGNESIUM 0.1 MG/DL (1.5-2.4)
[2023-12-21 08:22] VITALS: TEMP 98.3
[2023-12-21] MEDS: magnesium sulf-water 2g/50mL 50 ML IV ONE (08:22)
[2023-12-21] MEDS: adenosine 3mg/ml 2ml vial IV ONE (08:55)
[2023-12-21] MEDS ORDERED: MAGN400C PO (10:33)
[2023-12-21 11:03] VITALS: BP 117/75; PULSE 67; RESP 18; O2SAT 95
== END 2023-12-21 11:04 | disposition home or self-care (01) ==
LOC: ER 06:26
DX: I47.19 Other supraventricular tachycardia (principal); E83.42 Hypomagnesemia; I10 Essential (primary) hypertension; F12.90 Cannabis use, unspecified, uncomplicated; Z79.82 Long term (current) use of aspirin; Z79.899 Other long term (current) drug therapy
CPT/HCPCS: 36415; 71045; 80053; 83735; 84484; 85025; 92960; 93005; 96365; 96375; 99291; J0153; J3490; J7030; 96376

== ENCOUNTER 2024-01-01 05:28 | Emergency (ER) | payer MEDICARE, MEDICAID ==
[~2024-01-01] VITALS: Ht 177.8 cm; Wt 94.9 kg
[~2024-01-01 05:28] MED LIST changes: +MAGN400C PO
[2024-01-01 05:37] VITALS: TEMP 97.8
[2024-01-01] MEDS: normal saline 1000ml 1,000 ML IV ONE (05:55)
[2024-01-01] MEDS: magnesium sulf-water 2g/50mL 50 ML IV ONE (06:00)
[2024-01-01 06:24] LABS: ALANINE AMINOTRANSFERASE 47 U/L (12-78); ALBUMIN 3.8 G/DL (3.4-5.0); ALBUMIN/GLOBULIN RATIO 1.1 (1.1-1.5); ALKALINE PHOSPHATASE 111 IU/L (46-116); ANION GAP 10 (8-16); ASPARTATE AMINO TRANSFERASE 26 U/L (10-37); BILIRUBIN,TOTAL 0.4 MG/DL (0.1-1.0); BLOOD UREA NITROGEN 21 MG/DL (7-18); BUN/CREATININE RATIO 23.3 (10.0-20.0); CALCIUM 9.2 MG/DL (8.5-10.1); CHLORIDE 106 MMOL/L (99-107); GLUCOSE 139 MG/DL (70-104); SODIUM 142 MMOL/L (135-145); TOTAL CARBON DIOXIDE 25.7 MMOL/L (24-32); TOTAL PROTEIN 7.3 G/DL (6.4-8.2); eCRCL 84 ML/MIN; eGFR 85 ML/MIN
[2024-01-01 06:30] LABS: MAGNESIUM 1.9 MG/DL (1.5-2.4); PRO BRAIN NATRIURETIC PEPTIDE 304 PG/ML (0-125)
[2024-01-01 06:33] LABS: BASOPHILS # (AUTO) 0.1 X10'3 (0-0.2); BASOPHILS % (AUTO) 0.4 % (0-1); EOSINOPHILS # (AUTO) 0.3 X10'3 (0-0.9); HEMATOCRIT 44.9 % (42.0-52.0); HEMOGLOBIN 15.1 g/dl (14.0-17.9); LYMPHOCYTES # (AUTO) 2.2 X10'3 (1.1-4.8); LYMPHOCYTES % (AUTO) 16.3 % (21-51); MEAN CORPUSCULAR HEMOGLOBIN 28.7 PG (27.0-31.0); MEAN CORPUSCULAR HGB CONC 33.6 g/dL (33.0-36.5); MEAN CORPUSCULAR VOLUME 85.3 FL (78-98); MEAN PLATELET VOLUME 9.8 FL (7.4-10.4); MONOCYTES % (AUTO) 7.3 % (2-12); PLATELET COUNT 209 X10'3 (140-440); RED BLOOD COUNT 5.26 X10'6 (4.70-6.10); RED CELL DISTRIBUTION WIDTH 15.1 % (11.5-14.5); WHITE BLOOD COUNT 13.6 X10'3 (4.5-11.0)
[2024-01-01 06:46] LABS: POTASSIUM 4.1 MMOL/L (3.5-5.1)
[2024-01-01] MEDS: adenosine 3mg/ml 2ml vial IV ONE ×2 (06:55→07:20)
[2024-01-01 09:34] VITALS: BP 126/72; PULSE 67; RESP 17; O2SAT 97
== END 2024-01-01 10:03 | disposition home or self-care (01) ==
LOC: ER 05:29
DX: I47.10 Supraventricular tachycardia, unspecified (principal); I10 Essential (primary) hypertension; F12.90 Cannabis use, unspecified, uncomplicated; Z98.890 Other specified postprocedural states; Z79.82 Long term (current) use of aspirin; Z79.899 Other long term (current) drug therapy
CPT/HCPCS: 36415; 71045; 80053; 83735; 83880; 84100; 84484; 85025; 92960; 93005; 96360; 99291; A4620; J0153; J7030

== ENCOUNTER 2024-01-20 15:32 | Emergency (ER) | payer MEDICARE, MEDICAID ==
[~2024-01-20] VITALS: Ht 177.8 cm; Wt 109.1 kg
[2024-01-20] MEDS: adenosine 3mg/ml 2ml vial IV ONE ×2 (16:34→16:36)
[2024-01-20 16:52] LABS: BASOPHILS # (AUTO) 0.1 X10'3 (0-0.2); BASOPHILS % (AUTO) 0.4 % (0-1); EOSINOPHILS # (AUTO) 0.1 X10'3 (0-0.9); EOSINOPHILS % (AUTO) 0.4 % (0-6); HEMOGLOBIN 16.1 g/dl (14.0-17.9); MONOCYTES # (AUTO) 1.2 X10'3 (0-0.9)
[2024-01-20 16:54] LABS: HEMATOCRIT 48.1 % (42.0-52.0); LYMPHOCYTES # (AUTO) 3.2 X10'3 (1.1-4.8); LYMPHOCYTES % (AUTO) 20.5 % (21-51); MEAN CORPUSCULAR HEMOGLOBIN 28.7 PG (27.0-31.0); MEAN CORPUSCULAR HGB CONC 33.5 g/dL (33.0-36.5); MEAN CORPUSCULAR VOLUME 85.9 FL (78-98); MEAN PLATELET VOLUME 9.3 FL (7.4-10.4); MONOCYTES % (AUTO) 7.6 % (2-12); NEUTROPHILS % (AUTO) 71.1 % (42-75); PLATELET COUNT 312 X10'3 (140-440); RED CELL DISTRIBUTION WIDTH 15.1 % (11.5-14.5); WHITE BLOOD COUNT 15.5 X10'3 (4.5-11.0)
[2024-01-20 17:03] LABS: APTT 28 SECONDS (22-32)
[2024-01-20 17:06] LABS: ALANINE AMINOTRANSFERASE 52 U/L (12-78); ALBUMIN 4.2 G/DL (3.4-5.0); ALBUMIN/GLOBULIN RATIO 1.1 (1.1-1.5); ALKALINE PHOSPHATASE 123 IU/L (46-116); ANION GAP 9 (8-16); ASPARTATE AMINO TRANSFERASE 23 U/L (10-37); BILIRUBIN,TOTAL 0.5 MG/DL (0.1-1.0); BLOOD UREA NITROGEN 19 MG/DL (7-18); BUN/CREATININE RATIO 16.5 (10.0-20.0); CALCIUM 9.4 MG/DL (8.5-10.1); CHLORIDE 103 MMOL/L (99-107); CREATININE 1.15 MG/DL (0.60-1.10); GLUCOSE 134 MG/DL (70-104); MAGNESIUM 2.3 MG/DL (1.5-2.4); POTASSIUM 4.4 MMOL/L (3.5-5.1); SODIUM 136 MMOL/L (135-145); eCRCL 66 ML/MIN; eGFR 64 ML/MIN
[2024-01-20 17:29] VITALS: BP 119/81; PULSE 83; RESP 16; TEMP 98.1; O2SAT 98
== END 2024-01-20 17:31 | disposition home or self-care (01) ==
LOC: ER 15:33
DX: I47.10 Supraventricular tachycardia, unspecified (principal); I10 Essential (primary) hypertension; F12.90 Cannabis use, unspecified, uncomplicated; Z79.82 Long term (current) use of aspirin; Z79.899 Other long term (current) drug therapy; Z98.890 Other specified postprocedural states
CPT/HCPCS: 36415; 71045; 80053; 83735; 85025; 85730; 92960; 93005; 99285; A4620; J0153; J7030; Z7610

== ENCOUNTER 2024-02-08 05:24 | Emergency (ER) | payer MEDICARE, MEDICAID ==
[~2024-02-08] VITALS: Ht 177.8 cm; Wt 109.1 kg
[2024-02-08] MEDS: adenosine 3mg/ml 2ml vial IV ONE (05:48)
[2024-02-08 06:02] LABS: BASOPHILS # (AUTO) 0.1 X10'3 (0-0.2); BASOPHILS % (AUTO) 0.6 % (0-1); EOSINOPHILS # (AUTO) 0.3 X10'3 (0-0.9); EOSINOPHILS % (AUTO) 1.9 % (0-6); HEMATOCRIT 48.6 % (42.0-52.0); HEMOGLOBIN 15.9 g/dl (14.0-17.9); LYMPHOCYTES # (AUTO) 3.8 X10'3 (1.1-4.8); LYMPHOCYTES % (AUTO) 25.6 % (21-51); MEAN CORPUSCULAR HEMOGLOBIN 27.9 PG (27.0-31.0); MEAN CORPUSCULAR HGB CONC 32.6 g/dL (33.0-36.5); MEAN CORPUSCULAR VOLUME 85.7 FL (78-98); MEAN PLATELET VOLUME 9.4 FL (7.4-10.4); MONOCYTES # (AUTO) 1.2 X10'3 (0-0.9); MONOCYTES % (AUTO) 7.7 % (2-12); NEUTROPHILS # (AUTO) 9.6 X10'3 (1.8-7.7); NEUTROPHILS % (AUTO) 64.2 % (42-75); PLATELET COUNT 250 X10'3 (140-440); RED BLOOD COUNT 5.68 X10'6 (4.70-6.10); RED CELL DISTRIBUTION WIDTH 15.1 % (11.5-14.5)
[2024-02-08 06:11] LABS: ALANINE AMINOTRANSFERASE 51 U/L (12-78); ALKALINE PHOSPHATASE 121 IU/L (46-116); ANION GAP 12 (8-16); ASPARTATE AMINO TRANSFERASE 20 U/L (10-37); BILIRUBIN,TOTAL 0.4 MG/DL (0.1-1.0); BLOOD UREA NITROGEN 24 MG/DL (7-18); BUN/CREATININE RATIO 22.6 (10.0-20.0); CALCIUM 9.1 MG/DL (8.5-10.1); CHLORIDE 107 MMOL/L (99-107); CREATININE 1.06 MG/DL (0.60-1.10); GLUCOSE 163 MG/DL (70-104); POTASSIUM 4.2 MMOL/L (3.5-5.1); SODIUM 143 MMOL/L (135-145); TOTAL PROTEIN 8.1 G/DL (6.4-8.2); eCRCL 72 ML/MIN; eGFR 70 ML/MIN
[2024-02-08 06:22] LABS: PRO BRAIN NATRIURETIC PEPTIDE 560 PG/ML (0-125)
[2024-02-08 06:50] VITALS: BP 120/80; PULSE 73; RESP 16; O2SAT 94
== END 2024-02-08 06:51 | disposition home or self-care (01) ==
LOC: ER 05:24
DX: I47.10 Supraventricular tachycardia, unspecified (principal); I10 Essential (primary) hypertension; F12.90 Cannabis use, unspecified, uncomplicated; Z98.890 Other specified postprocedural states; Z79.899 Other long term (current) drug therapy; Z79.82 Long term (current) use of aspirin
CPT/HCPCS: 36415; 71045; 80053; 83880; 84484; 85025; 93005; 96374; 99285; J7030

== ENCOUNTER 2025-03-06 09:13 | Emergency (ER) | payer MEDICARE, MEDICAID ==
[~2025-03-06] VITALS: Ht 177.8 cm; Wt 113.6 kg
[2025-03-06 09:22] VITALS: BP 151/85; PULSE 82; RESP 18; TEMP 98.4; O2SAT 97
== END 2025-03-06 12:51 | disposition left against medical advice (07) ==
LOC: ER 09:13
DX: I10 Essential (primary) hypertension (principal); Z53.21 Procedure and treatment not carried out due to patient leaving prior to being seen by health care provider
CPT/HCPCS: 99281